=== PATIENT | female | born 1950 ===

== ENCOUNTER 2022-07-25 19:35 | Emergency (ER) | payer BC ==
[~2022-07-25] VITALS: Ht 157.5 cm; Wt 100.0 kg
[~2022-07-25 19:35] MED LIST: AMLO10TA13 PO; METO50TA16 PO
[2022-07-25 20:07] LABS: BASOPHILS % (AUTO) 0.9 % (0-1); EOSINOPHILS % (AUTO) 0.6 % (0-6); LYMPHOCYTES % (AUTO) 29.7 % (21-51); MEAN CORPUSCULAR HEMOGLOBIN 31.1 PG (27.0-31.0); MEAN CORPUSCULAR HGB CONC 33.2 g/dL (33.0-36.5); MEAN CORPUSCULAR VOLUME 93.8 FL (78-98); MEAN PLATELET VOLUME 8.5 FL (7.4-10.4); MONOCYTES # (AUTO) 0.3 X10'3 (0-0.9); MONOCYTES % (AUTO) 8.9 % (2-12); NEUTROPHILS % (AUTO) 59.9 % (42-75); PLATELET COUNT 93 X10'3 (140-440); RED BLOOD COUNT 2.25 X10'6 (4.20-5.60); RED CELL DISTRIBUTION WIDTH 14.7 % (11.5-14.5); WHITE BLOOD COUNT 3.3 X10'3 (4.5-11.0)
[2022-07-25 20:15] LABS: ALANINE AMINOTRANSFERASE 13 U/L (12-78); ALBUMIN 1.9 G/DL (3.4-5.0); ALBUMIN/GLOBULIN RATIO 0.3 (1.1-1.5); ALKALINE PHOSPHATASE 77 IU/L (46-116); ANION GAP 9 (8-16); ASPARTATE AMINO TRANSFERASE 29 U/L (10-37); BILIRUBIN,TOTAL 0.6 MG/DL (0.1-1.0); BLOOD UREA NITROGEN 6 MG/DL (7-18); BUN/CREATININE RATIO 2.1 (6.6-38.0); CHLORIDE 97 MMOL/L (99-107); CREATININE 2.92 MG/DL (0.40-0.90); GLUCOSE 109 MG/DL (70-104); POTASSIUM 3.8 MMOL/L (3.5-5.1); SODIUM 138 MMOL/L (135-145); TOTAL CARBON DIOXIDE 31.6 MMOL/L (24-32); TOTAL PROTEIN 8.4 G/DL (6.4-8.2); eGFR 16 ML/MIN
[2022-07-25 20:16] LABS: HEMATOCRIT 21.1 % (35.0-45.0)
[2022-07-25] MEDS ORDERED: ONDA4TAB12 PO (21:03)
[2022-07-25] MEDS ORDERED: ondansetron 4mg rapidly disintigrating tab PO ONE (22:15)
[2022-07-25 22:32] LABS: MAGNESIUM 1.8 MG/DL (1.5-2.4); PHOSPHORUS 1.7 MG/DL (2.3-4.5)
[2022-07-26 00:15] VITALS: BP 130/56
== END 2022-07-26 02:02 | disposition home or self-care (01) ==
LOC: ER 19:36
DX: R53.1 Weakness (principal); I10 Essential (primary) hypertension; Z88.1 Allergy status to other antibiotic agents; Z79.899 Other long term (current) drug therapy
CPT/HCPCS: 36415; 71045; 80053; 83735; 83880; 84100; 84443; 84484; 85025; 93005; 99285

== ENCOUNTER 2022-08-02 09:23 | Outpatient (CLI) | payer BC ==
[~2022-08-02 09:23] MED LIST changes: +ONDA4TAB12 PO
== END 2022-08-02 23:59 | disposition home or self-care (01) ==
LOC: LAB 09:23 → EDSTATUS 09:34 → LAB 23:59
PROVIDERS: ATTEND Internal Medicine Critical Care Medicine
DX: D64.9 Anemia, unspecified (principal)
CPT/HCPCS: 86644; 86945